=== PATIENT | male | born 1960 | race Caucasian/White ===

== ENCOUNTER 2022-12-02 08:14 | Emergency (ER) | payer OTHER ==
[~2022-12-02] VITALS: Ht 175.3 cm; Wt 84.1 kg
[2022-12-02] MEDS ORDERED: CLOP75TA99 PO (08:31)
[2022-12-02] MEDS ORDERED: ROSU20TA5 PO (08:31)
[2022-12-02] MEDS ORDERED: CETI5CHW PO (08:31)
[2022-12-02] MEDS ORDERED: CHOL50002 PO (08:31)
[2022-12-02] MEDS ORDERED: NITR0.4S14 SL (08:31)
[2022-12-02] MEDS ORDERED: BENA20TA PO (08:31)
[2022-12-02] MEDS ORDERED: FLON1SPR NARES (08:31)
[2022-12-02] MEDS ORDERED: ECOT81TA5 PO (08:32)
[2022-12-02] MEDS ORDERED: BOOSTRIX/ADACEL VACCINE (DIPHTH/PERTUSS/ACELL/TETANUS) 0.5ML SYR IM.IMMUN ONE (09:00)
[2022-12-02 10:00] VITALS: BP 141/77
== END 2022-12-02 10:22 | disposition home or self-care (01) ==
LOC: M ED 08:14
DX: S01.01XA Laceration without foreign body of scalp, initial encounter (principal); I25.10 Atherosclerotic heart disease of native coronary artery without angina pectoris; I10 Essential (primary) hypertension; E78.5 Hyperlipidemia, unspecified; F32.9 Major depressive disorder, single episode, unspecified; Z88.1 Allergy status to other antibiotic agents